=== PATIENT | female | born 1980 | race Hispanic/Latino ===

== ENCOUNTER 2017-09-28 | Emergency (ER) | payer BC, SELFPAY ==
--- NOTE | 2017-09-28 21:20 | ER ---
Nurse's Notes [facility] Name: Ana Paula Enriquez Age: 37 yrs Sex: Female : 1980 Arrival Date: 09/28/2017 Time: 20:21 Bed 23 Private MD: Diagnosis: Acute upper respiratory infection, unspecified;Lower abdominal pain, unspecified-chronic Presentation: 09/28 20:32 Presenting complaint: Patient states: congestion, productive cough, throat pain X8 ak1 days. pt c/o lower abd pain since December 2016, was seen by [employer] S[employer] W[employer] TECHNICIAN and given control pills. Transition of care: patient was not received from another setting of care. Onset of symptoms is unknown. Care prior to arrival: ampirexy - "guamanian antibiotic" per pt she has had 3 days worth. 20:32 Acuity: ELIAS 3 ak1 20:32 Method Of Arrival: Ambulatory ak1 Triage Assessment: 20:34 General: Appears in no apparent distress. Behavior is calm, cooperative. 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 - Social history:: Smoking status: Patient/guardian denies using tobacco. Screenin:34 Abuse screen: Denies threats or abuse. Denies injuries from another. Nutritional ak1 screening: No deficits noted. Tuberculosis screening: No symptoms or risk factors identified. Fall Risk Assessment: 21:18 Reassessment: Patient states she does not want to provide ordered urine sample and that kr2 she really just wants to leave and she walked out. Dr. Wray notified. Vital Signs: 20:31 BP 146 / 83; Pulse 83; Resp 18; Temp 98.5(TE); Pulse Ox 100% on R/A; Weight 58.97 kg ak1 (R); Height 5 ft. 7 in. (170.18 cm) (R); Pain 8/10; 20:31 Body Mass Index 20.36 (58.97 kg, 170.18 cm) ak1 ED Course: 20:21 Patient arrived in ED. al2 20:31 Arm band placed on Patient placed in an exam room, on a stretcher, on pulse oximetry, ak1 Patient notified of wait time. 20:32 Melvin Wray MD is Attending Physician. gs 20:34 Triage completed. ak1 20:35 Patient has correct armband on for positive identification. Bed in low position. Call ak1 light in reach. Side rails up X 1. Pulse ox on. NIBP on. 21:11 Ana Benson RN is Primary Nurse. kr2 21:16 Farzad Garcia DO is Referral Physician. gs 21:25 Primary Nurse role handed off by Ana Benson, FERN 21:25 Johnny Pratt MD is Referral Physician. 21:28 Ana Benson RN is Primary Nurse. kr2 Administered Medications: No medications were administered Outcome: 21:19 Discharge ordered by . gs 21:20 Patient left the ED. kr2 21:57 Patient left the ED. kr2 Signatures: Izzy Turner RN RN ak1 Melvin Wray MD MD Ana Benson RN RN kr2 Tereza Fierro2 Corrections: (The following items were deleted from the chart) 21:29 21:18 Reassessment: Patient states she does not want to provide ordered urine sample kr2 and that she really just wants to leave. Dr. Wray notified. Dr. Wray states he does not need to her to sign AMA form. kr2 21:57 21:18 Reassessment: Patient states she does not want to provide ordered urine sample kr2 and that she really just wants to leave. Dr. Wray notified. kr2
--- NOTE | 2017-09-28 21:20 | EDPHYS ---
Physician Documentation [facility] Name: Ana Paula Enriquez Age: 37 yrs Sex: Female : 1980 Arrival Date: 09/28/2017 Time: 20:21 Bed 23 Private MD: ED Physician Melvin Wray HPI: 09/28 21:01 This 37 yrs old Female presents to ER via Ambulatory with complaints of Cough, gs Abdominal Pain, Sore Throat. 21:01 The patient or guardian reports cough, hoarse voice. Onset: The symptoms/episode gs began/occurred 8 day(s) ago. Severity of symptoms: At their worst the symptoms were mild, in the emergency department the symptoms are unchanged. Modifying factors: the symptoms are aggravated by cold weather. Associated signs and symptoms: Pertinent positives: earache, sore throat, Pertinent negatives: fever. The patient has experienced similar episodes in the past, a few times. The patient has been recently seen by a physician: [place] doc. MANAGER LAN: 20:31 irregular ak1 Historical: - Allergies: 20:34 No Known Allergies; ak1 - Home Meds: 20:34 control [Active]; ak1 - PMHx: 20:34 None; ak1 - PSHx: 20:34 None; ak1 - Immunization history:: Adult Immunizations unknown. - Social history:: Smoking status: Patient/guardian denies using tobacco. ROS: 21:01 Abdomen/GI: Positive for abdominal pain, lower abdominal pain chronic has everyday the gs same seen ob has nopt seen pcp or gi. has fam hx colon ca in 40's. Exam: 21:01 Head/Face: Normocephalic, atraumatic. Eyes: Pupils equal round and reactive to light, gs extra-ocular motions intact. Lids and lashes normal. Conjunctiva and sclera are non-icteric and not injected. Cornea within normal limits. Periorbital areas with no swelling, redness, or edema. ENT: Nares patent. No nasal discharge, no septal abnormalities noted. Tympanic membranes are normal and external auditory canals are clear. Oropharynx with no redness, swelling, or masses, exudates, or evidence of obstruction, uvula midline. Mucous membranes moist. Neck: Trachea midline, no thyromegaly or masses palpated, and no cervical lymphadenopathy. Supple, full range of motion without nuchal rigidity, or vertebral point tenderness. No Meningismus. Chest/axilla: Normal chest wall appearance and motion. Nontender with no deformity. No lesions are appreciated. Cardiovascular: Regular rate and rhythm with a normal S1 and S2. No gallops, murmurs, or rubs. Normal PMI, no JVD. No pulse deficits. Respiratory: Lungs have equal breath sounds bilaterally, clear to auscultation and percussion. No rales, rhonchi or wheezes noted. No increased work of breathing, no retractions or nasal flaring. Abdomen/GI: Soft, non-tender, with normal bowel sounds. No distension or tympany. No guarding or rebound. No evidence of tenderness throughout. Back: No spinal tenderness. No costovertebral tenderness. Full range of motion. Skin: Warm, dry with normal turgor. Normal color with no rashes, no lesions, and no evidence of cellulitis. MS/ Extremity: Pulses equal, no cyanosis. Neurovascular intact. Full, normal range of motion. Neuro: Awake and alert, GCS 15, oriented to person, place, time, and situation. Cranial nerves II-XII grossly intact. Motor strength 5/5 in all extremities. Sensory grossly intact. Cerebellar exam normal. Normal gait. 21:01 Constitutional: The patient appears alert, awake. 21:22 Abdomen/GI: Hernia: noted in the umbilical area, incarceration, is not appreciated. Vital Signs: 20:31 BP 146 / 83; Pulse 83; Resp 18; Temp 98.5(TE); Pulse Ox 100% on R/A; Weight 58.97 kg ak1 (R); Height 5 ft. 7 in. (170.18 cm) (R); Pain 8/10; 20:31 Body Mass Index 20.36 (58.97 kg, 170.18 cm) ak1 MDM: 21:00 Patient medically screened. gs 21:01 Differential Diagnosis: Bronchitis Influenza Upper Respiratory Infection. Data reviewed: vital signs, nurses notes. ED course: pt refused urine testing for infection or . Administered Medications: No medications were administered Disposition: 09/28/17 21:19 Discharged to Home. Impression: Acute upper respiratory infection, unspecified, Lower abdominal pain, unspecified - chronic. - Condition is Stable. - Discharge Instructions: Upper Respiratory Infection, Adult. - Prescriptions for Prednisone 20 mg Oral Tablet - take 1 tablet by ORAL route once daily for 5 days; 5 tablet. Albuterol Sulfate 90 mcg/actuation - inhale 1-2 puff by INHALATION route every 4-6 hours; 1 Inhaler. - Medication Reconciliation Form, Thank You Letter, Antibiotic Education, Prescription Opioid Use form. - Follow up: Farzad Garcia DO; When: 2 - 3 days; Reason: Re-evaluation by your physician. Follow up: Johnny Pratt MD; When: 2 - 3 days; Reason: Re-evaluation by your physician. Signatures: Izzy Turner RN RN ak1 Melvin Wray MD MD gs Ana Benson RN RN kr2
== END 2017-09-28 21:57 | disposition home or self-care (01) ==
DX: J06.9 Acute upper respiratory infection, unspecified (principal)
CPT/HCPCS: 99282

== ENCOUNTER 2020-12-15 10:03 | Day surgery (SDC) | payer BC ==
[2020-12-13 08:39] LABS: Urine Appearance CLOUDY (Clear); Urine Bilirubin NEGATIVE (Negative); Urine Blood 1+ (Negative); Urine Color YELLOW (Yellow); Urine Glucose NEGATIVE (Negative); Urine Protein NEGATIVE (Negative); Urine Urobilinogen 0.2 mg/dL (0.2-1.0); Urine pH 5.5 (5.0-7.0)
[2020-12-13 08:44] LABS: Absolute Lymphocytes (CBC) 1.4 K/uL (0.7-4.9); Basophils % 1.4 % (0-1.3); Hematocrit 35.9 % (36.0-45.0); Lymphocytes % 31.3 % (15.3-44.8); RBC Red Blood Cell Count 4.08 M/uL (3.86-4.86)
[2020-12-13 08:47] LABS: Urine Microscopic Reflex ORDER UMIC
[2020-12-13 09:13] LABS: Urine Bacteria 20-50 /HPF (<20); Urine RBC <5 /HPF (NONE SEEN)
[2020-12-13 09:14] LABS: Urine Mucus 1+ /HPF (NONE SEEN)
--- NOTE | 2020-12-14 12:00 | EKG ---
Test Date: 2020-12-13 Test Time: 07:19:45 Safety And Health Consultant: CINDY MEASUREMENT RESULTS: Intervals: Rate: 56 UT: 134 QRSD: 86 QT: 426 QTc: 411 [place]: P: 74 UT: 134 QRS: 83 T: 58 INTERPRETIVE STATEMENTS: Sinus bradycardia Otherwise normal ECG Compared to ECG 09/14/2005 16:22:08 Sinus rhythm no longer present Electronically Signed On 12-14-20 11:54:19 CDT by Brenton Gruber
[2020-12-15] MEDS ORDERED: Ringers Lactate 1,000 ML IV ONE (10:29)
[2020-12-15] MEDS ORDERED: ROCURONIUM 50 MG/5 ML VIAL IV ONE (10:33)
[2020-12-15] MEDS ORDERED: dexAMETHasone 10 MG/ML VIAL ONE (10:33)
[2020-12-15] MEDS ORDERED: LIDOCAINE 2% MPF 5 ML VIAL ONE (10:33)
[2020-12-15] MEDS ORDERED: MIDAZOLAM HCL 2 MG/2 ML INJ ONE (10:33)
[2020-12-15] MEDS ORDERED: propofoL 200 MG/20 ML VIAL IV ONE (10:33)
[2020-12-15] MEDS ORDERED: FENTANYL CITR 250 MCG/5 ML ONE (10:33)
[2020-12-15] MEDS ORDERED: ONDANSETRON 4 MG/2 ML VIAL ONE (10:33)
[2020-12-15] MEDS ORDERED: SCOPOLAMINE HYDROBROMIDE PATCH TD ONE (10:38)
[2020-12-15 10:56] LABS: Specific Gravity 1.025 (1.005-1.030)
[2020-12-15] MEDS: BUPIVACAINE 0.25% PF 30 ML VIAL ONE ×2 (12:34→13:09)
[2020-12-15] MEDS: CEFAZOLIN/SWI 2gm 2 GM/20 ML SYR ONE ×2 (12:34→12:40)
[2020-12-15] MEDS: Ringers Lactate 1,000 ML IV ONE ×2 (13:50→13:57)
[2020-12-15] MEDS ORDERED: KETOROLAC 30 MG/ML INJ ONE (15:27)
--- NOTE | 2020-12-15 15:38 | P.BOP ---
Preoperative diagnosis: menorrhagia, RLQ pain, umb hernia Postoperative diagnosis: same, endometriosis extensive, right ovarian mass, end ometrioma Primary procedure: hystsc ablation, lapsc bilateral salpingect/extensive endo rx Secondary procedure: rt ov endo removal, left ureterolysis Secondary Art Teacher: Maria Alejandra Nieves Estimated blood loss: minimal Specimen: endometriosis ant CDS left/right,lat watkins right/left,right ovary,b/l tubes Findings: Endo ant CDS bladder pillars, bilat lateral watkins, rt ovary Anesthesia: General Complications: None Transferred to: Recovery Room Condition: Good
[2020-12-15] MEDS ORDERED: PROMETHAZINE INJ 25 MG/ML AMP IV PRN (15:39)
[2020-12-15] MEDS ORDERED: PROMETHAZINE 25 MG TABLET PO PRN (15:39)
[2020-12-15] MEDS ORDERED: HYDROCODONE/APAP 5/325 MG TAB PO PRN (15:39)
[2020-12-15] MEDS ORDERED: IBUPROFEN 200 MG TAB PO PRN (15:39)
[2020-12-15] MEDS: MEPERIDINE HCL 25 MG/ML SYR IM PRN ×2 (16:10→16:16)
[2020-12-15] MEDS ORDERED: HYDROMORPHONE HCL 1 MG/ML INJ ONE (16:20)
[2020-12-15] MEDS ORDERED: PROMETHAZINE INJ 25 MG/ML AMP ONE (16:20)
[2020-12-15] MEDS ORDERED: MEPERIDINE HCL 25 MG/ML SYR ONE (16:27)
[2020-12-15 16:36] VITALS: BP 122/65
[2020-12-15] MEDS ORDERED: FENTANYL CITR 100 MCG/2 ML ONE (16:46)
[2020-12-15 17:01] VITALS: TEMP 96.5; O2SAT 99
[2020-12-15] MEDS ORDERED: HYDROCODONE/APAP 5/325 MG TAB ONE (17:15)
[2020-12-16] MEDS ORDERED: HOME MED 1 EA UNK (Multivitamin [Multivitamin] Tablet) PO SCH (09:00)
[2020-12-16] MEDS ORDERED: FERROUS SULFATE 325 MG TAB PO SCH (09:00)
--- NOTE | 2020-12-16 17:48 | OP ---
Date of Procedure: 12/15/2020 Surgeon: Ely Pa MD [employer]oultry Farm Supervisor: Maria Alejandra Blanco. Preoperative Diagnoses: Menorrhagia, pelvic pain, right lower quadrant pain and umbilical hernia . Postoperative Diagnoses: Menorrhagia, pelvic pain, right lower quadrant pain and umbilical hernia, e xtensive endometriosis, right ovarian endometriosis. Procedures Performed: 1.Hysteroscopy and endometrial ablation. 2.Laparoscopy with bilateral salpingectomy. 3.Extensive endometriosis excision. 4.Right ovarian cyst/endometrial endometriosis removal. 5.Left ureterolysis. 6.Umbilical hernia repair. Anesthesia: General endotracheal. Estimated Blood Loss: Minimal. Specimens: Endometriosis; anterior cul-de-sac, right and left; lateral watkins, both right and left; b ilateral tubes and right ovary and endometrium. Complications: No complications. Drains: No drains. Condition: Stable. Findings: Endometriosis was seen. There was an entire pelvic cavity deep infiltrating endometriosis noted in the anterior cul-de-sac and the bladder pillars and posteriorly, both lateral watkins. Adhes ions of the ovaries to the posterior lateral watkins and posterior broad ligament and endometriotic imp lant that was deep and infiltrating almost cystic on the right ovary, which was removed. Significant adhesions of the left ovary to the lateral wall and excising the implants in this area. The left ur eter had to be dissected and the distal 2/3 of the pelvic cavity to the ureteric tunnel in order for me to remove the implants. Indications: The patient is a 40-year-old female. The patient presented with heavy periods, right l ower quadrant pain. She has completed childbearing and desired no further chances of conception. Ri ght lower quadrant pain has been significant and persistent over time. Also had a urinary frequency and urgency related incontinence. in her workup for bleeding, she had a transvaginal ultrasound, the n followed by endometrial sampling using a D and C hysteroscopy. The pathology had no atypia or allison gnancy. On the ultrasound, there was a small fibroid 2 cm with the right ovarian cyst about 3.4 cm a nd appeared to be a most likely a benign cyst. The patient's right lower quadrant pain raised the benjamin spicion for an endometrioma and given her symptoms during her period and dysmenorrhea, we discussed a bout all the alternatives for treatment, which included an ablation and removal of endometriosis, regino ateral salpingectomy for preventing any further conception, especially given endometrial ablation. A n IUD was discussed as an option, but the patient's pain does not suit option of this. The right low er quadrant pain and the cyst, possible endometriosis, discussed about that and possible removal. So , treatment with depot medroxyprogesterone and combination contraceptives were all discussed. The minoo cox wanted to proceed with an ablation endo treatment and bilateral salpingectomy. She was told th at she has a small umbilical hernia when she was in the ER and she wanted this fixed. Consented her for all these. The patient understood. The patient was started on Provera b.i.d. unti l surgery for thinning her lining and consent was redone in the preoperative area and she was taken b ack to the OR. Procedure In Detail: 2 g of Ancef were given. SCDs were placed. The patient was placed in a supine fashion on operative table. General anesthesia was given. Placed in a dorsal lithotomy position. Abdomen, vulva, vagina, and perineum were prepped and draped in a sterile fashion. Hurt was placed to drain the bladder. Speculum was placed to expose the cervix. Anterior lip was grasped with 2 All is clamps. Diagnostic SlimLine hysteroscope was introduced into the uterine cavity and the cavity wa s well visualized, measured directly, 9 cm sounding and 3.5 cm cervical length. Calculated uterine c avity length was 5.5. This was entered with the NovaSure device. This device was primed. Cervix wa s dilated to 16-[place]. NovaSure device was deployed without any problems at the fundus. An occluder was placed at the cervix. Cavity integrity test was done and passed. Proceeded with an uninterrupt ed ablation cycle of 1 minute 21 seconds at 106 diaz power. Cavity width was 3.5 cm. Device was then deployed in the usual fashion. Diagnostic hysteroscopy was done again and the cavity was rinsed out with excellent ablation effect in the entire endometrial cavity. Scope was removed. Diagnostic uterine manipulator was introduced into the uterus and fixed in place. This area was chan ped. A 1 cm infraumbilical incision was made with a scalpel. The umbilical hernia appeared to be periumbi lical, especially slightly to the left. Once the incision was made, the fascia was identified. Subc utaneous tissues were dissected of an incision made on the fascia very close to the opening of the um bilical hernia. Fascia held with 2 Suzi's. Then, dissection was performed down to the peritoneum. Once the peritoneum was entered, a finger was inserted to identify the hernia and the incision conn ected to it. That was slightly to the left of the umbilical dimple. The hernia sac was identified a nd dissected all the way around just preperitoneal fat. This was clamped and tied with a 3-0 chromic and cut and discarded. The entire fascial edges were all cleared up and dissected free. 0 Vicryl s utures were placed on the edges of the fascia. Seamus was introduced. Adequate insufflation was don e. Site of entry was checked and this was unremarkable. The abdominal cavity surface was completely unremarkable. No evidence of any endometriosis on the upper abdominal cavity. The appendix was vis ualized and unremarkable. The patient was placed in Trendelenburg position. Easily identified deep infiltrating endometriotic implant on the anterior cul-de-sac. Three 5 ports were placed. Right lower quadrant, left lower sea drant, suprapubic skin and fascial sites injected with 0.25% Marcaine. Trocars were placed under dir ect vision without any problems and pelvic cavity was surveyed carefully. There was the right ovaria n endometrioma. The cyst was very small, most likely shrunk at this time. Tubes appeared to be most ly unremarkable, however, the plan was to remove the tubes to prevent conception due to the ablation. The ureters were traced from the pelvic brim to the ureteric tunnel and the implants were identified lateral and superior to the ureter at the level of the ureteric tunnel. The peritoneum covering the uterine vessels and the lateral wall and the posterior broad ligament were involved. Similar implant on the opposite side, but here the ovary was scarred onto it. The implants on the anterior cul-de-sac on the bladder pillars were noted as dictated in the findings . The peritoneum lateral to the implants was opened up on the lateral wall sharply with scissors. Tarah lei, with the help of the monopolar, the peritoneum was scored in the lateral half in a circular fash ion getting all the implants. The implants were dissected from their base and I came down to the lev el of the uterine vessel, carefully dissected off the area of the peritoneal implants close to the ur eteric tunnel. Once these were from the underlying ureter and the vessels, the entire impl ant was resected with the bipolar LigaSure as well as monopolar. Handed out for permanent pathology. No underlying injury to any of the organs. Moving onto the opposite side, the ovary was dissected carefully. There were no implants on the ovar y. The implants on the left lateral wall were close to the ureter. An incision was made lateral to the peritoneal implant between the uterine artery and the ureteric tunnel and the peritoneum was diss ected and scraped towards the lateral aspect. The medial leaf of the broad ligament that was incised was opened up and the ureter was dissected. The area between the vessels from the ureter was dissec vanessa and the internal iliac vessels were also dissected to expose the origin of the uterine artery. T he fat here in between was also involved with a deep infiltrating implant, so this was dissected free until normal tissue was seen. The entire implant complex was removed with the help of the monopolar and bipolar LigaSure. Once all these were removed, they were handed off for permanent pathology. T he tubes were removed with the help of the LigaSure on both sides and retrieved. Then, anterior cul- de-sac implants were dissected. A peritoneal incision was made lateral to the implant on the left si de first, then dissection was carried to open the prevesical space dissecting the implant away, later al wall as well and then from the medial broad ligament posteriorly taking it off the vessels and dis secting it medially. Once I came to normal peritoneum, this was resected with the help of the monopo lar needle. There was normal tissue seen without any infiltrated endometriosis tissue here. On the opposite side, the implants were deeper, somewhat closer to the bladder, probably explaining h er bladder symptoms. So, all this was dissected carefully and completely. A lateral incision was ma de first in the peritoneum and the implants were dissected carefully off the medial leaf of the broad ligament and the uterine vessels. The paravesical space was opened up and all the implants were rem felicia with a monopolar needle circumferentially opening the area up and the peritoneum was stripped of f along with the deep implants carefully making sure that I was able to free normal fat and did not l eave behind any endometriosis. Once all the implants were removed, they were all retrieved and malka d out for permanent pathology. The right ovary was then visualized and ovarian implant had a cyst th at seems to have collapsed and so this was circumferentially scored with the help of the monopolar ne edle and the entire cyst was resected deeply from the ovarian tissue. Once this was done, there was excellent hemostasis. A 3-0 Monocryl suture was placed in a [id number] fashion to close the ova stevan tissue and bring it together. After thorough irrigation and suction with the plenty of saline, the ovaries were wrapped with Interceed to prevent adhesions. Manipulator was removed. Instrument a nd sponge counts were done. All the trocars removed under direct vision. Injected the fascia in the skin with 0.25% Marcaine. All the trocars were removed without any problems. The tag sutures were left and hernia repair was done. Umbilical hernia repair was done by identifying all the edges. The umbilical dimple had to be releas ed somewhat in order for me to get the edges on the right side and once all the edges were seen, 0 PD S was used on a CT-1 needle to make 2 [id number] sutures covering the gap in the fascia and once this was done, there was excellent closure. Then, in the middle, the tagged 0 Vicryl sutures were t ied to each other. Once this was done, the umbilical dimple was reattached with 3-0 chromic back to the stalk and then the skin incision was closed with continuous running 4-0 Vicryl subcuticular sutur e. All skin incisions were closed with the help of 4-0 Vicryl in an interrupted fashion. Hurt and the manipulator were removed. Instrument, needle, and sponge counts at the end of the case x3 were c orrect. The patient was recovered from anesthesia and taken to PACU in stable condition. RUBY/KIM Voice ID: [id number] Report ID: [id number]
== END 2020-12-15 17:45 | disposition home health service (06) ==
LOC: OR 10:03
PROVIDERS: ATTEND Obstetrics & Gynecology
PROC: 0WQF0ZZ Repair Abdominal Wall, Open Approach (ICD-10-PCS; 2020-12-15)
PROC: 0UBF4ZZ Excision of Cul-de-sac, Percutaneous Endoscopic Approach (ICD-10-PCS; 2020-12-15)
PROC: 0UB04ZZ Excision of Right Ovary, Percutaneous Endoscopic Approach (ICD-10-PCS; 2020-12-15)
PROC: 0WBF4ZZ Excision of Abdominal Wall, Percutaneous Endoscopic Approach (ICD-10-PCS; 2020-12-15)
PROC: 0DBW4ZZ Excision of Peritoneum, Percutaneous Endoscopic Approach (ICD-10-PCS; 2020-12-15)
PROC: 0U5B8ZZ Destruction of Endometrium, Via Natural or Artificial Opening Endoscopic (ICD-10-PCS; 2020-12-15)
PROC: 0UT74ZZ Resection of Bilateral Fallopian Tubes, Percutaneous Endoscopic Approach (ICD-10-PCS; principal; 2020-12-15 11:30)
DX: N83.8 Other noninflammatory disorders of ovary, fallopian tube and broad ligament (principal); R10.31 Right lower quadrant pain; K42.9 Umbilical hernia without obstruction or gangrene; N80.1 Endometriosis of ovary; N80.3 Endometriosis of pelvic peritoneum; Z20.822 Contact with and (suspected) exposure to COVID-19
CPT/HCPCS: 58661; 49585; 58662; 58563; 93005; 87088; 85025; 87086; 36415; 86900; 86850; 81025; 86901; 88305; U0003; J2704; J2550; J2250; J3010; J1100; J2175; J1170; J0690; J7120 ×2; J2405; 81003; 81015